=== PATIENT | female | born 1985 | race Caucasian/White ===

== ENCOUNTER 2017-02-03 23:21 | Emergency (ER) | payer OTHER ==
[~2017-02-03] VITALS: Ht 162.6 cm; Wt 65.9 kg
[2017-02-03 23:31] VITALS: BP 125/86; PULSE 100; RESP 14; O2SAT 99
== END 2017-02-04 00:30 | disposition left against medical advice (07) ==
LOC: SED 23:21
DX: M54.5 Low back pain (principal); Z53.21 Procedure and treatment not carried out due to patient leaving prior to being seen by health care provider

== ENCOUNTER 2017-02-05 20:35 | Emergency (ER) | payer OTHER ==
[~2017-02-05] VITALS: Ht 162.6 cm; Wt 2.2 kg
[2017-02-05 20:45] VITALS: BP 131/83; PULSE 95; RESP 18; O2SAT 100
--- NOTE | 2017-02-05 22:38 | ED.REPORT ---
HPI-URI / Cough / Cold Date of Service Feb 05, 2017 ED Provider: Doc,Ed MD Pt is an otherwise healthy 31 year old female who presents to the ED complaining of cough onset 1 week ago. She c/o associated body aches, back pain , chest pain, and sinus congestion. She reports that she was on a course of Bactrim with no relief. Nursing Notes Stated Complaint: CHEST,SINUS,COUGHING,BACK PAIN Chief Complaint: Respiratory Complaints Nursing Notes Reviewed: Yes Allergies: Coded Allergies: Penicillins (Verified Allergy, Unknown, 02/05/17) bupropion (Verified Allergy, Unknown, 02/05/17) General Time Seen by MD: 22:38 Chief Complaint Cough, non-productive Hx Obtained From: Patient Arrived By: Walk-in Onset Occurred: 1 week ago Symptom Duration: Since onset Location: : Chest Quality: Painful Severity: Current: Moderate Severity: Maximum: Moderate Context: Immunization Status General: All up to date Recent Healthcare: Recent doctor visit Similar Sx Previous: No Past Medical History Past Medical History Denies: Congestive heart failure, Diabetes mellitus, Hypertension Past Surgical History Denies Smoking History Unknown if Ever Smoker Social History Alcohol Use: Denies alcohol use Drug Use: Denies drug use Ambulatory Status Independent Review of Systems Ears / Nose / Throat: Reports: Nasal congestion Respiratory: Reports: Non-productive cough GI: Denies: Abdominal pain Complete sys rev & neg: except as marked. Cardiovascular: Reports: Chest pain Musculoskeletal: Reports: Back pain Physical Exam Initial Vital Signs Vital Signs (First) Date Time Temp Pulse Resp B/P Pulse Ox O2 Delivery O2 Flow Rate FiO2 02/05/17 20:45 36.2 95 18 131/83 100 Room Air Initial VS: Reviewed Neck: Supple, Full range of motion Cardiovascular: Regular rate & rhythm, Heart sounds normal, Intact distal pulses Abdomen / GI: Soft, Non-tender Extremities: Vascular intact, Neuro intact Skin: Warm, Dry, No cyanosis Neurologic: Alert, Oriented, Nonfocal Psychiatric: Mood/affect normal, Behavior normal General/Constitutional: Awake, Alert, Cooperative, Not toxic appearing ENT: Atraumatic, Airway patent, Mucous membranes moist, Pharynx NL Respiratory / Chest: Atraumatic, Breath sounds = bilat Dimished breath sounds bilaterally. Pleuritic chest pain. Interpretation & Diagnostics Lab Results Interpretation Test 02/05/17 23:35 D-Dimer < 0.50mg/L FEU (<0.50) Hold Estrada Top Tube Received (Received) X-Ray Chest Interpretation Chest Xray Interpretation: Normal View: Portable, 1 view Interpretation / Wet Read by: Wet read ED physician Re-Eval/Medical Decision Med Decision/Clinical Course Two-view chest x-ray is normal. Low risk well's criteria. Pulmonary embolus rule out criteria met. Negative d-dimer. Pulmonary emboli essentially ruled out. Course of Zithromax recommended. Short course of Freedom for pain. Close outpatient follow-up recommended. Source of Hx: Old records Re-Evaluation/Progress : Time of Eval: 00:21 Re-Evaluation/Progress Note: Pt rechecked. She is feeling much better with the medication. Low risk wells PE not indicated. Informed pt of plan for discharge. Pt understands and agrees with plan for discharge. F/U instructions and RTER warnings given. All questions addressed. Counseled Regarding: Diagnosis, Lab results, Need for follow-up, When/why to return to ED Discharge & Departure Shift Change Sign-Out Response to Therapy: Improved Impression: Primary Impression: Acute bronchitis Bronchitis organism: unspecified organism Qualified Code: J20.9 - Acute bronchitis, unspecified Disposition: Home Discharge Condition All VS Reviewed: Yes Condition: Stable Patient Instructions: Acute Bronchitis (ED) Additional Instructions: The blood clot blood test and chest x-ray were normal. You have bronchitis. Zithromax as a Z-Gregg as instructed. 1-2 Freedom every 6 hours as needed for cough and pain. Do not drive or drink alcohol or consume acetaminophen for take the Freedom. Follow up with her primary care physician for referral clinic given. Return if any problems or new or worsening symptoms. Do not drive tonight Referrals: [facility] (PCP) [facility] [employer] Attestation Portions of this note were transcribed by Gretta Iniguez. I, Dr. Moffett personally performed the history, physical exam and medical decision-making; I reviewed and confirmed the accuracy of the information in the transcribed note. Signed by: Magaly Calderon, 02/06/17 and 01:20 copies to: [facility] Zackery Moffett DO Feb 05, 2017 22:38 Gretta Fernandez Feb 05, 2017 23:26
[2017-02-05] MEDS ORDERED: HYDROcodone-APAP 5-325 mg Tablet PO ONE (22:55)
[2017-02-06] MEDS ORDERED: _HYDROcodone/APAP 5-325 mg Tablet PO PRN
[2017-02-06 00:31] VITALS: BP 126/78; PULSE 92; RESP 18; O2SAT 100
--- NOTE | 2017-02-06 08:58 | DRSVH ---
PROCEDURE: X-RAY CHEST, TWO VIEWS ([id number]) INDICATIONS: cough, on antiobiotics TECHNIQUE: 2 views of the chest were acquired. COMPARISON: None. FINDINGS: Surgical changes and devices: None. Lungs and pleura: No pleural effusions or pneumothorax. Lungs are clear. Mediastinum: Mediastinal contours are normal. Heart size is normal. Bones and chest wall: No suspicious bony abnormalities. Soft tissues appear unremarkable. IMPRESSION: No acute cardiopulmonary disease. Dictated by: Drew Couch [facility] Interpreted: Angela Chin MD on 02/06/2017 at 8:57 Transcribed by: DAGO on 02/06/2017 at 8:57 Approved by: Angela Chin M.D. on 02/06/2017 at 11:27
== END 2017-02-06 00:34 | disposition home or self-care (01) ==
LOC: SED 20:35
DX: J20.9 Acute bronchitis, unspecified (principal); Z88.0 Allergy status to penicillin; Z88.8 Allergy status to other drugs, medicaments and biological substances

== ENCOUNTER 2017-05-04 19:11 | Emergency (ER) | payer OTHER ==
[~2017-05-04] VITALS: Ht 161.3 cm; Wt 68.2 kg
[2017-05-04 19:19] VITALS: BP 131/83; PULSE 109; RESP 20; O2SAT 99
--- NOTE | 2017-05-04 20:23 | DRSVH ---
PROCEDURE: X-RAY LEFT WRIST COMPLETE, MINIMUM THREE VIEWS ([id number]) INDICATIONS: trauma TECHNIQUE: 4 views of the wrist were acquired. COMPARISON: None. FINDINGS: Bones: No fractures or dislocations. No suspicious bony lesions. Scaphoid view: Scaphoid is intact. Soft tissues: No suspicious soft tissue calcifications. IMPRESSION: No fracture. No osseous lesion. If there are persistent symptoms or clinical suspicion f or pathology, then repeat radiographs or advanced imaging (CT, MRI or bone scan) should be considered for further evaluation. Dictated by: Marielle Chandler MD, PhD on 05/04/2017 at 20:21 Approved by: Marielle Chandler MD, PhD on 05/04/2017 at 20:22
--- NOTE | 2017-05-04 21:45 | ED.REPORT ---
HPI-Extremity Problem Upper Date of Service May 04, 2017 ED Provider: Dr. Saenz The pt is a 32 y/o female with a hx of previous left wrist fracture who presents to the ED complaining of left wrist pain, onset last week after she injured it while playing with her nephew. Pain is worsened by wrist extension. Patient complains of pain at the distal radius, distal ulna, and at multiple sites in the hand. Associated sx include intermittent numbness in left fingers and mild left hand weakness. Nursing Notes Stated Complaint: WRIST PAIN Chief Complaint: Extremity Trauma Nursing Notes Reviewed: Yes Allergies: Coded Allergies: Penicillins (Verified Allergy, Unknown, 05/04/17) bupropion (Verified Allergy, Unknown, 05/04/17) General Time Seen by MD: 22:10 Chief Complaint Wrist injury left Hx Obtained From: Patient Arrived By: Walk-in Onset Occurred: 1 week ago Symptom Duration: Since onset Caused by: Blow Location: : Wrist left Quality: Painful Severity: Current: Moderate Severity: Maximum: Moderate Recent Healthcare: No recent doctor visit Similar Sx Previous: Yes Past Medical History Past Medical History left wrist fracture Past Surgical History Denies Smoking History Unknown if Ever Smoker Social History Alcohol Use: Denies alcohol use Drug Use: Denies drug use Ambulatory Status Independent Review of Systems Musculoskeletal: Reports: Joint pain (left wrist) Neurologic: Reports: Numbness (intermittent numbness in left fingers), Weakness (mild left hand weakness) Complete sys rev & neg: except as marked. Physical Exam Initial Vital Signs Vital Signs (First) Date Time Temp Pulse Resp B/P Pulse Ox O2 Delivery O2 Flow Rate FiO2 05/04/17 19:19 37.3 109 20 131/83 99 Room Air Initial VS: Reviewed Head / Eyes: Atraumatic, Normocephalic Neck: Supple, Non-tender, Full range of motion Respiratory: No respiratory distress Cardiovascular: Intact distal pulses Abdomen / GI: No guarding, No distention Lower Extremities: Vascular intact, Neuro intact, No swelling, No tenderness Skin: Warm, Dry, No cyanosis Neurologic: Alert, Oriented, Nonfocal General/Constitutional: Awake, Alert, Well appearing, Cooperative Upper Extremity / MS: Atraumatic, Full range of motion, No swelling, Non-tender , No erythema, No deformity, Neurologic intact, Vascular intact Wrist / Hand: Atraumatic, No swelling, No deformity, Neurologic intact, Vascular intact Tenderness in the snuffbox and at the base of her first metacarpal. Distal ulnar tenderness with palpation without overlying skin changes. Negative Phalen's sign Negative Tinel's sign Interpretation & Diagnostics X-Ray Interpretation Xray Interpretation: IMPRESSION: No fracture. No osseous lesion. If there are persistent symptoms or clinical suspicion for pathology, then repeat radiographs or advanced imaging (CT, MRI or bone scan) should be considered for further evaluation. Dictated by: Marielle Chandler MD, PhD on 05/04/2017 at 20:21 Approved by: Marielle Chandler MD, PhD on 05/04/2017 at 20:22 X-Ray Ordered: Wrist left Interpretation / Wet Read by: Interpret - Radiologist Re-Eval/Medical Decision Med Decision/Clinical Course 32-year-old female reports left wrist injury after her nephew opened a door quickly and she caught the door with her left wrist. She has continued to have pain several days after the injury, and has been using a wrist brace provided by her friend without significant relief. X-ray today does not show obvious fracture, and close orthopedic follow-up with our hand surgeon is advised. Patient has multiple sites of pain over her hand that do not correlate with a single injury. Contact information was given and patient understands and agrees with the plan for follow-up. Re-Evaluation/Progress : Time of Eval: 22:14 Re-Evaluation/Progress Note: Rechecked pt. Discussed imaging results, diagnosis and plan to discharge. Pt understands and agrees with the plan. F/U instruction and RTER warning given. All questions addressed. Counseled Regarding: Diagnosis, Need for follow-up, When/why to return to ED Discharge & Departure Impression: Primary Impression: Left wrist pain Disposition: Home Discharge Condition All VS Reviewed: Yes Condition: Stable Patient Instructions: Wrist Injury (ED) Additional Instructions: Thank you for entrusting us with your care today. Your imaging results were reassuring. There is no sign of a fracture. You may have a ligament injury. Follow up with Dr. Clemens, orthopedist. Referral is provided below. Take ibuprofen as needed. Wear a brace. Return to the emergency department in case of any new or worsening symptoms. Referrals: [facility] ([facility]P) Javier Clemensibdori Attestation Portions of this note were transcribed by Rabia Barrera. I,, personally performed the history,physical exam and medical decision-making;I reviewed and confirmed the accuracy of the information in the transcribed note. Signed by Magaly Steve. 05/04/17 copies to: Javier Clemens Gary R DO May 04, 2017 21:45 Rabia Barrera May 04, 2017 22:16
[2017-05-04 22:41] VITALS: BP 114/67; PULSE 77; RESP 18; O2SAT 99
== END 2017-05-04 22:42 | disposition home or self-care (01) ==
LOC: SED 19:11
DX: M25.532 Pain in left wrist (principal); Z88.0 Allergy status to penicillin; Z88.8 Allergy status to other drugs, medicaments and biological substances